=== PATIENT | female | born 1995 | race Two or more races ===

== ENCOUNTER 2022-02-22 08:48 | Outpatient (REF) | payer OTHER, SELFPAY ==
--- NOTE | ~2022-02-22 | XR_ITS ---
EXAMINATION: XR CHEST CLINICAL INFORMATION: Morbid/severe obesity due to excess calories COMPARISON: None TECHNIQUE: 2 views of the chest were obtained. FINDINGS: No significant abnormality is noted involving the heart, lungs, mediastinum, bony thorax or soft tissues. XR/XR chest 2V IMPRESSION: Unremarkable chest examination.
[2022-02-22 09:13] LABS: MANUAL DIFF FLAG NO
--- NOTE | 2022-02-22 09:13 | ECG_ITS ---
Test Reason : e66.01 Blood Pressure : / mmHG Vent. Rate : 078 BPM Atrial Rate : 078 BPM P-R Int : 150 ms QRS Dur : 082 ms QT Int : 392 ms P-R-T Axes : 012 021 019 degrees QTc Int : 446 ms Normal sinus rhythm Normal ECG No previous ECGs available Referred By: Chris Guadarrama Electronically Signed By:CATALINA MAGUIRE MD
[2022-02-22 09:37] LABS: Basophils Percent Auto 0.5 % (0-2); Eosinophils Absolute Auto 0.1 X10*3/uL (0.0-0.4); Hematocrit 40.8 % (37.0-47.0); Hemoglobin 13.1 g/dl (12.0-16.0); Imm Gran Abs Auto 0.02 X10*3/uL (0.00-0.03); Imm Gran Pct Auto 0.3 % (0.0-0.4); Lymphocytes Absolute Auto 3.2 X10*3/uL (1.2-4.9); Lymphocytes Percent Auto 39.5 % (20-40); Mean Corpuscular HGB Conc 32.1 g/dl (31.0-35.0); Mean Corpuscular Hemoglobin 26.6 pg (27.0-33.0); Mean Corpuscular Volume 82.8 fL (80.0-98.0); Mean Platelet Volume 9.9 fL (9.4-12.3); Monocytes Absolute Auto 0.5 X10*3/uL (0.1-1.2); Monocytes Percent Auto 6.4 % (2-11); Neutrophils Absolute Auto 4.2 x10*3/uL (2.0-8.3); Neutrophils Percent Auto 52.3 % (45-73); Platelet Count 414 X10*3/uL (160-400); Red Blood Count 4.93 X10*6/uL (4.20-5.50); Red Cell Distribution Width 15.1 % (11.0-16.0)
[2022-02-22 09:44] LABS: Estimated Average Glucose 111 mg/dL; Hemoglobin A1c % 5.5 %
[2022-02-22 10:00] LABS: Alanine Aminotransferase 17 U/L (0-31); Albumin Level 4.3 g/dL (3.5-5.0); Alkaline Phosphatase 86 U/L (39-117); Anion Gap 18 (12-20); Aspartate Amino Transferase 25 U/L (5-31); Bilirubin Total 0.4 mg/dL (0.0-1.0); Blood Urea Nitrogen 10 mg/dL (9-16); C Reactive Protein 1.54 mg/dL (< or = 0.50); Calcium 9.5 mg/dL (8.4-10.2); Carbon Dioxide 23 mmol/L (22-29); Chloride 102 mmol/L (96-108); Cholesterol 165 mg/dL; Estimated Glomerular Filt Rate > 60; Glucose Random 87 mg/dL (60-115); HDL Cholesterol 37 mg/dL; Iron 54 mcg/dL (30-160); LDL Cholesterol Calculated 118 mg/dl; Percent Iron Saturation 16 % (15-50); Potassium 4.5 mmol/L (3.3-5.1); Sodium 138 mmol/L (135-145); Total Iron Binding Capacity 337 mcg/dL (228-428); Total Protein 8.1 g/dL (6.5-8.0); Triglycerides 53 mg/dL; Unsaturated Iron Binding 283 ug/dL
[2022-02-22 10:46] LABS: Folate 13.1 ng/mL (> or = 4.0); Vitamin B12 1098 pg/mL (200-900)
[2022-02-22 10:55] LABS: Ferritin 65 ng/mL (10-122); Insulin 16 uU/mL (2-29); TSH reflex Free T4 1.26 uIU/mL (0.32-4.0)
[2022-02-25 17:27] LABS: Calcium (PTHI) 9.8 mg/dL (8.6-10.2); PTHI 74 pg/mL (16-77)
[2022-02-26 17:52] LABS: Zinc 80 mcg/dL (60-130)
[2022-02-28 15:26] LABS: Vitamin A 29 mcg/dL (38-98)
[2022-03-01 06:16] LABS: Vitamin B1 6 nmol/L (8-30)
== END 2022-02-22 08:49 | disposition home or self-care (01) ==
LOC: HO.XRAY 08:48
PROVIDERS: Visit Provider Surgery
DX: E66.01 Morbid (severe) obesity due to excess calories (principal); K21.9 Gastro-esophageal reflux disease without esophagitis; Z11.0 Encounter for screening for intestinal infectious diseases
CPT/HCPCS: 36415; 71046; 80053; 80061; 82306; 82607; 82728; 82746; 83036; 83525; 83540; 83970; 84425; 84443; 84590; 84630; 85025; 86140; 93005; 99211

== ENCOUNTER 2022-02-22 16:05 | Outpatient (REF) | payer OTHER, SELFPAY ==
[2022-02-23 11:11] LABS: H Pylori Breath Test Negative (Negative)
== END 2022-02-22 16:06 | disposition home or self-care (01) ==
LOC: HO.LNP 16:05
PROVIDERS: Visit Provider Surgery
DX: E66.01 Morbid (severe) obesity due to excess calories (principal); K21.9 Gastro-esophageal reflux disease without esophagitis; Z11.0 Encounter for screening for intestinal infectious diseases
CPT/HCPCS: 83013

== ENCOUNTER → 2022-03-14 10:58 | Outpatient (BNVA) | payer OTHER, SELFPAY | PROVIDERS: Visit Provider Dietitian, Registered | DX: E66.01 Morbid (severe) obesity due to excess calories (principal); Z68.41 Body mass index [BMI] 40.0-44.9, adult | CPT/HCPCS: 97802 ==

== ENCOUNTER → 2022-03-18 09:20 | Outpatient (BNVA) | payer OTHER, SELFPAY | PROVIDERS: Visit Provider Counselor Mental Health | DX: F43.21 Adjustment disorder with depressed mood (principal); E66.01 Morbid (severe) obesity due to excess calories | CPT/HCPCS: 90791 ==

== ENCOUNTER → 2022-04-05 08:08 | Outpatient (BNVA) | payer OTHER, SELFPAY | PROVIDERS: Visit Provider Surgery | DX: Z13.89 Encounter for screening for other disorder (principal) ==

== ENCOUNTER 2022-05-02 09:58 | Outpatient (REF) | payer OTHER, SELFPAY ==
--- NOTE | ~2022-05-02 | US_ITS ---
EXAMINATION: US COMPLETE ABDOMEN WITH LIVER ELASTOGRAPHY CLINICAL INFORMATION: Obesity. COMPARISON: None. TECHNIQUE: Real-time imaging of the abdominal viscera. Noninvasive ultrasound liver fibrosis assessment is performed using Darryn ElastPQ point quantification shear wave elastography (2D-SWE) with a C5-2 MHz transducer. Multiple elastography samples are obtained. FINDINGS: PANCREAS: Limited. The visualized pancreatic head and body are normal in appearance. The remainder of the pancreas is obscured from visualization by the overlying bowel gas. ABDOMINAL AORTA: The proximal, middle, and distal aortic segments are normal in caliber. INFERIOR VENA CAVA: Visualized portions are normal. LIVER: The liver demonstrates normal size, contour and generally increased echogenicity. No focal lesion or intrahepatic biliary duct dilatation. The right lobe measures 16.8 cm in length. The left lobe measures 12.0 cm in length. Portal flow is towards the liver (hepatopetal). Shear wave liver elastography median stiffness is 1.46 m/s (reference: normal median stiffness is 1.3 m/s or less). IQR/median stiffness to assess sampling precision is 0.10 (reference: good quality data set is IQR/median stiffness of 0.15 or less). GALLBLADDER: Normal. The gallbladder is physiologically distended without evidence of stones, sludge, polyps, wall thickening or pericholecystic fluid. COMMON BILE DUCT: Normal in caliber measuring 0.3 cm in diameter. RIGHT KIDNEY: Normal. There is mild pelviectasis, without ty hydronephrosis. No renal calculi or focal parenchymal lesions. The kidney measures 11.3 cm in maximum dimension. LEFT KIDNEY: Normal. There is mild pelviectasis, without ty hydronephrosis. No renal calculi or focal parenchymal lesions. The kidney measures 11.6 cm in maximum dimension. SPLEEN: Normal. The spleen measures 9.8 cm in maximum dimension. FREE FLUID: None. US/US abdomen comp w elastography IMPRESSION: 1. There is generalized increase in hepatic echotexture, consistent with fatty infiltration or hepatocellular disease. Please correlate clinically. No focal hepatic mass or intrahepatic biliary dilatation is seen. 2. Liver elastography: In the absence of other known clinical signs, measurements rule out compensated advanced chronic liver disease. If there are known clinical signs, further testing may be needed for confirmation. REFERENCE: Society of Radiologists in Ultrasound Liver Stiffness Thresholds (2020): LIVER STIFFNESS THRESHOLDS: *Liver Stiffness equal or less than 1.3 m/s: High probability of being normal. *Liver Stiffness less than 1.7 m/s: In the absence of other known clinical signs, rules out compensated advanced chronic liver disease. *Liver Stiffness 1.7-2.1 m/s: Suggestive of compensated advanced chronic liver disease but need further test for confirmation. *Liver Stiffness over 2.1 m/s: Rules in compensated advanced chronic liver disease. *Liver Stiffness over 2.4 m/s: Suggestive of clinically significant portal hypertension. QUALITY OF DATA SET: *IQR/Median value equal or less than 0.15 implies a quality data set. *IQR/Median value over 0.15 implies a poor quality data set. SIGNIFICANT CHANGE FROM PRIOR EXAM: Significant change if liver stiffness measurement is 10% or greater from prior exam. OTHER CONSIDERATIONS: The stage of liver fibrosis may be overestimated in the setting of acute hepatitis, liver inflammation, elevated liver function tests, hepatic vascular congestion, obstructive cholestasis, non-fasting state, and infiltrative diseases such as amyloidosis and lymphoma. In some patients with NAFLD, the liver stiffness thresholds for compensated advanced chronic liver disease may be lower. In causes other than viral hepatitis and NAFLD, liver stiffness thresholds are not well established.
== END 2022-05-02 09:59 | disposition home or self-care (01) ==
LOC: HO.US 09:58
PROVIDERS: Visit Provider Surgery
DX: Z01.818 Encounter for other preprocedural examination (principal); E66.01 Morbid (severe) obesity due to excess calories
CPT/HCPCS: 76705; 76981

== ENCOUNTER 2022-05-08 10:30 | Outpatient (REF) | payer OTHER, SELFPAY ==
--- NOTE | ~2022-05-08 | FL_ITS ---
EXAMINATION: FL UPPER GI SERIES CLINICAL INFORMATION: Bariatric service evaluation. E 66.01. Heartburn. COMPARISON: Chest radiographs 02/22/2022 TECHNIQUE: Upper GI series is performed using fluoroscopic evaluation in addition to multiple fluoroscopic spot views. The patient is imaged both upright and prone and using both thick and thin barium sulfate along with effervescent granules. Barium pill challenge also performed. Fluoroscopy time: 1.5 minutes DAP: 29.327 Gycm2 Fluoroscopic spot images: 20 FINDINGS: There is normal esophageal motility. There is no obstruction, stricture, or ulceration. Barium pill rapidly passes from mouth to stomach without delay. There is a brief small sliding hiatal hernia during prone Valsalva maneuver, approximately 1 thoracic vertebral body in height. There is spontaneous gastroesophageal reflux seen during the exam to junction mid and proximal thoracic esophagus. The stomach shows no thickened folds or ulcer crater or outlet obstruction. The duodenal bulb is pliable and without ulcer crater or scarring. The post bulbar duodenum the jejunal mucosal pattern are unremarkable. FL/FL upper GI w air IMPRESSION: -Small intermittent sliding hiatal hernia during prone Valsalva maneuver. -Spontaneous gastroesophageal reflux to junction proximal and mid thoracic esophagus. -No ulceration or scarring.
== END 2022-05-08 10:31 | disposition home or self-care (01) ==
LOC: HO.XRAY 10:30
PROVIDERS: Visit Provider Surgery
DX: E66.01 Morbid (severe) obesity due to excess calories (principal); K21.9 Gastro-esophageal reflux disease without esophagitis
CPT/HCPCS: 74246

== ENCOUNTER → 2022-05-20 09:07 | Outpatient (BNVA) | payer OTHER, SELFPAY | PROVIDERS: Visit Provider Surgery | DX: Z13.89 Encounter for screening for other disorder (principal) ==

== ENCOUNTER 2022-05-24 09:15 | Outpatient (REF) | payer OTHER, SELFPAY ==
[2022-05-24 11:21] LABS: MANUAL DIFF FLAG NO
[2022-05-24 12:52] LABS: Basophils Percent Auto 0.3 % (0-2); Eosinophils Absolute Auto 0.1 X10*3/uL (0.0-0.4); Eosinophils Percent Auto 0.6 % (0-4); Hematocrit 42.2 % (37.0-47.0); Hemoglobin 13.3 g/dl (12.0-16.0); Imm Gran Abs Auto 0.04 X10*3/uL (0.00-0.03); Imm Gran Pct Auto 0.4 % (0.0-0.4); Lymphocytes Absolute Auto 2.9 X10*3/uL (1.2-4.9); Lymphocytes Percent Auto 27.1 % (20-40); Mean Corpuscular HGB Conc 31.5 g/dl (31.0-35.0); Mean Corpuscular Hemoglobin 26.3 pg (27.0-33.0); Mean Corpuscular Volume 83.4 fL (80.0-98.0); Monocytes Absolute Auto 0.6 X10*3/uL (0.1-1.2); Monocytes Percent Auto 5.5 % (2-11); Neutrophils Absolute Auto 7.2 x10*3/uL (2.0-8.3); Neutrophils Percent Auto 66.1 % (45-73); Platelet Count 446 X10*3/uL (160-400); Red Blood Count 5.06 X10*6/uL (4.20-5.50); Red Cell Distribution Width 14.9 % (11.0-16.0); White Blood Count 10.8 X10*3/uL (4.8-10.8)
[2022-05-24 12:57] LABS: INTERNATIONAL NORM RATIO 1.1 (0.9-1.1); Prothrombin Time 13.2 SEC (10.0-13.1)
[2022-05-24 12:59] LABS: Partial Thromboplastin Time 36.5 SEC (26.0-36.4)
[2022-05-24 13:36] LABS: Alanine Aminotransferase 12 U/L (0-31); Albumin Level 4.1 g/dL (3.5-5.0); Alkaline Phosphatase 95 U/L (39-117); Anion Gap 14 (12-20); Aspartate Amino Transferase 18 U/L (5-31); Bilirubin Total 0.3 mg/dL (0.0-1.0); Blood Urea Nitrogen 9 mg/dL (9-16); C Reactive Protein 3.65 mg/dL (< or = 0.50); Calcium 9.4 mg/dL (8.4-10.2); Carbon Dioxide 24 mmol/L (22-29); Chloride 106 mmol/L (96-108); Cholesterol 171 mg/dL; Estimated Glomerular Filt Rate > 60; Glucose Random 86 mg/dL (60-115); HDL Cholesterol 47 mg/dL; LDL Cholesterol Calculated 114 mg/dl; Potassium 4.9 mmol/L (3.3-5.1); Sodium 139 mmol/L (135-145); Total Protein 7.7 g/dL (6.5-8.0); Triglycerides 54 mg/dL
[2022-05-24 13:56] LABS: Insulin 16 uU/mL (2-29)
[2022-05-24 14:12] LABS: Estimated Average Glucose 103 mg/dL; Hemoglobin A1c % 5.2 %
== END 2022-05-24 09:16 | disposition home or self-care (01) ==
LOC: HO.LAB 09:15
PROVIDERS: Visit Provider Surgery
DX: E66.01 Morbid (severe) obesity due to excess calories (principal)
CPT/HCPCS: 36415; 80053; 80061; 83036; 83525; 84443; 85025; 85610; 85730; 86140

== ENCOUNTER 2022-06-04 13:24 | Inpatient (IN) | payer OTHER, SELFPAY ==
[2022-05-27 11:15] VITALS: BMI 42.0
--- NOTE | 2022-06-01 15:54 | MHC.SHP ---
Pre-Procedural Eval Section A Date of Service: 06/01/22 The patient is an INPATIENT: No The History & Physical has been completed within 30 days and I have reviewed it.: Yes Section B Chief Complaint: obesity Relevant Family History (Specify if Yes): No Relevant Social History: None Present Medications: None Medical History: No relevant PMH History of Previous Operations: No relevant previous surgery Allergies: Allergies Allergy/AdvReac Type Severity Reaction Status Date / Time Penicillins Allergy Severe HIVES Verified 05/27/22 11:12 Review of Systems Sugical H&P ROS: Negative: Constitution, Cardiovascular, Respiratory, Neurological, Psychiatric, Hem-Onc, Allergic/Immunologic, Gastrointestinal, Genitourinary, Musculoskeletal, Integumentary, Endocrine and Eyes/Ears/Nose/Throat Exam Surgical H&P Exam: Normal: HEENT, Normal: Heart, Normal: Lungs, Normal: Extremities, Normal: Abdomen, Normal: Skin and Normal: Neurological Plan Diagnosis/Plan: Unchanged I have reviewed the history and physical and performed a pertinent physical examination on my patient. No changes have occurred unless specified. Time Spent With Patient Time: Total time managing care of this patient today ____ minutes.
[2022-06-04] VITALS (14 sets, daily range): BP systolic 114–145; BP diastolic 56–99; PULSE 63–114; RESP 11–20; TEMP 36–36.9; O2SAT 95–100
--- NOTE | 2022-06-04 07:32 | HO.ANESPROP2 ---
HPI - Anesthesia Eval Consult details Narrative: 27 yo female patient for EGD, Laparoscopic Sleeve Gastrectomy, possible diaphragmatic hernia repair, possible ventral hernia repair, possible open PMFSH Active Problems Active Problems: All Active Problems (Updated 03/18/22 @ 09:56 by Karla Rowe) Vitamin D deficiency (Acute) Vitamin B1 deficiency (Acute) Vitamin A deficiency (Acute) Adjustment disorder with depressed mood (Acute) Axillary hidradenitis suppurativa (Acute) GERD (gastroesophageal reflux disease) (Acute) Morbid obesity (Acute) BMI 42 Denies snoring, KILLIAN Past Medical History Medical History Axillary hidradenitis suppurativa GERD (gastroesophageal reflux disease) Morbid obesity Family History Family History Mother No problems noted. Father Diabetes Hypertension Sister No problems noted. Sister No problems noted. Sister No problems noted. Brother No problems noted. Brother No problems noted. Brother No problems noted. Son No problems noted. 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) Do you presently have visiting nurse or other home services: No Alcohol intake: current Alcohol intake frequency: does not drink Patient Tobacco Use Status: Never used Tobacco Use of substances other than those prescribed or required for medical reasons: No Meds Allergies Allergy/AdvReac Type Severity Reaction Status Date / Time Penicillins Allergy Severe HIVES Verified 06/04/22 09:16 Home Medications Medication Instructions Recorded Confirmed Last Taken Type multivitamin 1 tab PO DAILY 02/07/22 05/20/22 Unknown History vits,calcium no.78-iron 1 tab PO DAILY 05/08/22 05/20/22 Unknown History fumarate-folic acid 29 mg-1 mg tablet (Prenatabs FA) Exam Exam Date and Time: June 04, 2022 0732 Height,Weight and Vital Signs: Height 5 ft Weight 97.522 kg Vital Signs Temp Pulse Resp BP Pulse Ox O2 Del Method 06/04/22 09:26 98.4 F 92 16 129/75 98 Room Air Pertinent Lab Results Pertinent Lab Results: Laboratory Tests 05/24/22 11:10 Blood Type O Positive Antibody Screen NEGATIVE Lab Results 05/24/22 06/04/22 06/04/22 Range/Units 11:10 09:05 09:05 Urine Test NEGATIVE (NEGATIVE) COVID-19 ([facility]) Negative (Negative) COVID-19 Clin Com See Note Blood Type O Positive Antibody Screen NEGATIVE Airway Mallampati Class: II TM Dist: >3cm Neck ROM: Full Loose/Missing/Broken Teeth: No (Denies broken, loose, missing teeth) Heart: RRR Lungs: CTAB Assessment and Plan Assessment Anesthesia Assessment: Anesthesia Plan Discussed and Chart Reviewed Final Anesthetic Review Family History of Problems with Anesthesia: No History of Problems with Anesthesia: No NPO: Yes ASA Class: III Final Preanesthetic Review: No Changes in Pt Med Stat, Meds/Allgs Chart Reviewed, Consent Obtained/Reviewed and Anes Risks/Benef Reviewed Patient Risk: Intermediate Procedure Risk: Intermediate Assessment/Block/Sedation in SS: Assess/Block/Sedation-SS Anesthetic Plan Anesthetic Plan: GA Disposition: Standard PACU and Inp. Admit - Standard Bed
[2022-06-04 09:20] LABS: UPreg QC Valid YES; Urine Pregnancy NEGATIVE (NEGATIVE)
[2022-06-04 09:41] LABS: COVID-19 Test Negative (Negative); IDNOW Serial# 55D5AD1C
[2022-06-04] MEDS: Lactated Ringers 1,000 ML 999 ML IV (09:44)
--- NOTE | 2022-06-04 10:56 | P.BOP_ITS ---
Brief Operative Note Date of Service: 06/04/22 Pre-op diagnosis: Morbid obesity with comorbidities (see below) Post-op diagnosis: same Procedure: INITIAL PATIENT BMI ON PRESENTATION AT OUR OFFICE: 45.6 kg/m2 LAST BMI BEFORE SURGERY: 40.2 kg/m2 COMORBIDITIES: GERD, hydradenitis, diaphragmatic hernia, liver fibrosis,liver steatosis ?The patient presented to the Weight Management Program with significant obesity that was negatively impacting the patient's comorbidities as listed above.? The program is a phased program with a special focus on preoperative medical weight management to promote substantial weight loss and prepare the patients for the second phase of the program: bariatric surgery. The patient participated in an intensive weekly lifestyle ?intervention and exercise program during which the patient ?has lost between the initial office visit and the last preoperative visit 28.4lbs, or 11.78% of initial actual body weight. It was deemed appropriate for the patient to now have bariatric surgery. In light of the current Covid-19 pandemic and the well documented strong association of obesity and increased risk of worse outcomes if infected with Covid-19 (REFERENCES: https://pubmed.ncbi.nlm.nih.gov/28191553/ ,? https://pubmed.ncbi.nlm.nih.gov/99814743/ ), any delay in undergoing bariatric surgery may lead to the patient's worsening health condition and increased?risk of more severe Covid-19 disease if infected. In addition a recent?study from [facility] published in [facility] on 04/09/2021 ([id number]) found that, among patients with obesity, substantial weight loss achieved with surgery was associated with improved outcomes of COVID-19 infection. The findings suggest that obesity can be a modifiable risk factor for the severity of COVID-19 infection. In addition, the patient met the BMI-criteria for bariatric surgery based on the BMI on initial presentation. The patient should not be penalized for achieving such weight loss because ?it is not sustainable long-term without surgical intervention and it was achieved in preparation for bariatric surgery ?under my direction and based on my published research ([email or web address]).[email or web address] and? https://www.soard.org/article/W2312-8849(75)49912-X/pdf ) ?that a 10% preo perative weight loss improves long-term weight loss after surgery and reduces perioperative complications.? Insurance carriers such as [facility] have endorsed my recommendations ?and have included in their policies criteria to include a 10% preoperative weight loss requirement. PROCEDURE: Esophago-gastroscopy, laparoscopic sleeve gastrectomy and laparoscopic gastropexy INDICATIONS: This is a 27 year-old female who was electively scheduled for laparoscopic, possibly open sleeve gastrectomy. The risks and complications of the procedure were discussed with the patient in advance, particularly the po ssibility of ; pulmonary embolism; staple line leak; bleeding; GERD; cardiac, pulmonary, or renal complications; as well as long-term problems such as insufficient weight loss, vitamin deficiency, strictures, or ulcers. The patient understood all the risks, and was in agreement to proceed with surgery. DESCRIPTION OF PROCEDURE: After informed consent was obtained from the patient, the patient was given preoperative antibiotics, and was transferred to the operating room. After successful induction of general anesthesia, pneumatic compression devices were placed on both lower extremities. An upper endoscopy was performed next. The oropharynx and esophagus appeared to be within normal limits. There was a diaphragmatic hernia present of moderate size consistent with the findings of the preoperative upper GI. The stomach was entered. Then after all fluid and air were suctioned and the stomach was fully decompressed, the scope was withdrawn and secured in the mid esophagus. The patient was then prepped and draped in the usual sterile manner, and abdominal access was established at the right upper quadrant with the Thu technique. A 12 mm blunt port was inserted, and the abdomen was insufflated with CO2 to a pressure of 15 mmHg. Under direct visualization, additional ports were placed, specifically two 5 mm Versi-step ports to the left upper quadrant, and a 5 mm Versi-Step port to the right upper quadrant. 1% lidocaine plain was used to infiltrate all port sites as well as all fascia defects. Using the EndoClose suture passer device, I placed a #1 Polysorb tie across the falciform ligament in order to retract it up against the abdominal wall and prevent injury of the ligament with our instruments during the procedure. Following that, the patient was placed in a steep reverse Trendelenburg position. An additional 5 mm port was placed to the right flank for the Mediflex retractor that was used to retract the left lobe of the liver. The gastro-esophageal fat pad was opened with the ultrasonic device (Thunderbeat, Olympus) and the anterior esophagus and hiatus were exposed. The angle of His was opened with the ultrasonic device the fundus of the stomach from any diaphragmatic and splenic attachments. I then opened the gastrocolic ligament between the transverse colon and the greater curvature of the stomach with the ultrasonic device to enter the lesser sac and facilitate the ligation of the short gastric vessels. I started at a mid-point along the greater curvature and using the Thunderbeat, all short gastric vessels were divided all the way to the angle of His until the left wilmer was completely dissected at its entirety. I then divided the gastro-colic ligament distally to a distance of about 3-4 cm proximal to the pylorus. The stomach was then divided transversely with one Endo MATTHEW-45 purple, one MATTHEW- 45 orange load and three MATTHEW-6s0 articulating orange loads using the AEON stapler and loads. Every effort was made that the gastric sleeve had a tubular shape and an even caliber throughout. Once the sleeve resection was completed, the staple line of the gastric sleeve was reinforced with Hemoclips. The resected stomach was retrieved without difficulty from the Thu port. A gastropexy was then performed in order to prevent postoperative GERD and partial gastric volvulus. Several interrupted 2.0 Surgidac sutures were placed between the sleeve's staple line and the previously divided greater omentum and gastro-colic ligament using the Endo-Stitch device. ?An upper endoscopy was performed. There was no narrowing at the GE junction. The scope was easily advanced all the way to the pylorus which was clearly visualized. There was no narrowing anywhere and the sleeve's caliber was even throughout. The sleeve's staple line was inspected and there was no evidence of ischemia, bleeding or dehiscence. At that point the gastroscope was withdrawn from the patient?s mouth while we were decompressing the bowel and the stomach from any remaining air. I looked into the lesser sac to see how the sleeve was situating and it was situating well. There was no bleeding from the staple line, spleen, or short gastric vessels. The Mediflex retractor was removed, and the undersurface of the liver was inspected and there was no bleeding. The patient was placed in supine position. I closed the fascial defect of the 12 mm port site with a figure of eight #1 Polysorb suture. Then 30cc of Ropivacaine plain with 10 mg of Dexamethasone were used to infiltrate the fascial closure as well as all skin incisions. A total of 7ml of Zynrelef was applied in the Thu wound. At this point, the abdomen was deflated, all ports were removed under direct vision, and no bleeding was noted from any of the port sites. The skin incisions were irrigated with saline and were closed with 4-0 absorbable monofilament sutures. Steri-Strips and OpSites were used to cover all incisions. The patient was extubated and was transferred in stable condition to the recovery room for further care. I was present and performed all craft parts of the procedure. Ms. Davis was the first dyer. There were no residents to assist with this case. James Guadarrama MD, PhD, FACS Surgeon: Chris Guadarrama MD Anesthesia: GETA, local and other (TAP block and 7ml of Zynrelef) Was an Finishing Range Feeder used for this Procedure?: No Finishing Range Feeder: Tina Davis Estimated blood loss (mL): 10 IV fluids (mL): 2,600 Urine output (mL): 0 (No Walton to record output) Pathology: other (Stomach) Condition: stable Disposition: PACU
--- NOTE | 2022-06-04 11:01 | PM.PNGS ---
Subjective Subjective Date of Service: 06/05/22 Interval history: Patient has mild incisional pain, but was able to ambulate and use the incentive spirometer. She is tolerating phase 1 bariatric diet Physical Exam Vital Signs: Vital Signs: Last Vital Signs Temp 98.4 F 06/04/22 09:26 Pulse 92 06/04/22 09:26 Resp 16 06/04/22 09:26 BP 129/75 06/04/22 09:26 Pulse Ox 98 06/04/22 09:26 O2 Del Method 06/04/22 09:26 BMI result Body Mass Index 42.0 GI: Inspection: Yes normal to inspection, Yes incision (clean, dry and intact) and Yes obesity Palpation (GI): Soft to palpation Extrem: Right lower extremity: normal to inspection (no calf tenderness) Left lower extremity: normal to inspection (no calf tenderness) Objective Data Active Medications Fentanyl (Fentanyl Citrate/Pf 100 Mcg/2 Ml Vial) 25 mcg IVPUSH Q5M PRN; Protocol PRN Reason: Pain, Moderate (Pain Scale 4-6 Hydromorphone HCl (Hydromorphone Hcl 0.5 Mg/0.5 Ml Syringe) 0.25 mg IVPUSH Q5M PRN; Protocol PRN Reason: Pain, Severe (Pain Scale 7-10) Lactated Ringer's (Lr) 1,000 mls @ 100 mls/hr IVCONT .Q10H JUAN RAMON Promethazine HCl 6.25 mg/ (Sodium Chloride) 50.25 mls @ 201 mls/hr IV ONCE PRN PRN Reason: Nausea and Vomiting Ondansetron HCl (Ondansetron Hcl 4 Mg/2 Ml Vial) 4 mg IVPUSH ONCE PRN PRN Reason: Nausea and Vomiting Labs 06/04/22 13:44 06/04/22 13:44 Labs: Laboratory Results - last 24 hr 06/04/22 06/04/22 09:05 09:05 Urine Test NEGATIVE COVID-19 ([facility]) Negative COVID-19 Clin Com See Note Procedures Date of Service Date of Service: 06/05/22 Progress Note: A&P Assessment and plan (1) Morbid obesity: Status: Acute Assessment and Plan: s/p laparoscopic sleeve gastrectomy and gastropexy Doing well Check am labs. If OK, will discharge home? (2) GERD (gastroesophageal reflux disease): Status: Acute (3) Axillary hidradenitis suppurativa: Status: Acute (4) Diaphragmatic hernia: Status: Acute (5) Steatosis, liver: Status: Acute (6) Liver fibrosis: Status: Acute (7) S/P laparoscopic sleeve gastrectomy: Status: Acute Time Spent With Patient Time: Total time managing care of this patient today ____ minutes. Quality Stroke Does the patient have a stroke diagnosis?: No VTE Prior VTE?: No VTE Risk Level:: Surgical - moderate VTE Device Contraindication: N/A - Device Ordered VTE Drug Contraindication: Treatment Not Indicated
[2022-06-04] MEDS: Lactated Ringers 1,000 ML 100 ML IVCONT ×3 (11:04→21:31)
[2022-06-04] MEDS: levoFLOXacin/D5W 500 MG/100 ML PIGGYBACK 100 MG IV (11:13)
[2022-06-04] MEDS: Acetaminophen 1,000 MG/100 ML PIGGYBACK 400 MG IV (12:50)
--- NOTE | 2022-06-04 13:29 | PM.DS ---
DS: Providers Provider Date of Service: 06/05/22 Primary care physician: Unknown Physician DS: Diagnosis Discharge Diagnosis (1) Morbid obesity: Status: Acute (2) GERD (gastroesophageal reflux disease): Status: Acute (3) Axillary hidradenitis suppurativa: Status: Acute (4) Diaphragmatic hernia: Status: Acute (5) Steatosis, liver: Status: Acute (6) Liver fibrosis: Status: Acute DS: Summary Hospital Course Hospital Course: ADMITTING DIAGNOSIS: morbid obesity, GERD, hydradeniits suppurtiva DISCHARGE DIAGNOSIS: same, s/p laparoscopic sleeve gastrectomy PAST SURGICAL HISTORY: breast reduction PROCEDURE: upper endoscopy, laparoscopic sleeve gastrectomy DISCHARGE SUMMARY: History of Present Illness: The patient is a 27 year-old woman with a BMI of 45.5 kg/m2 and associated co-morbidities as described above. The patient had extensive work-up, lost 22.2 lbs preoperatively and was electively scheduled for laparoscopic, possible open sleeve gastrectomy and gastropexy. Risks and complications of the surgery were discussed with the patient in advance, particularly the possibility of , pulmonary embolism, anastomotic leak, bleeding, bowel injury, GERD, cardiac, renal or pulmonary complications. The patient understood all the risks and was in agreement with the surgical plan. Hospital Course: The patient underwent an uneventful laparoscopic sleeve gastrectomy with gastropexy on the day of admission. Postoperatively, the patient was transferred to the surgical floor. The patient received IV Acetaminophen and IV dilaudid for pain control. Patient was started on bariatric phase 1 diet POD #0. On postoperative day one, the patient was feeling well without nausea, vomiting, fevers, or tachycardia. The patient had some mild incisional pain and the abdomen was soft. On the morning of postoperative day one, the patient was continued on 1 ounce of water or ice every half hour. During the day, the patient did fairly well, having some incisional pain, but able to ambulate adequately and to tolerate liquids well. Since the patient is doing well, we decided that the patient was ready to be discharged. The patient was given instructions to follow-up with me next week and to call my office for any fever over 101, persistent abdominal pain, nausea, vomiting, GERD, symptoms of DVT such as calf tenderness, or leg swelling, or pulmonary embolism such as chest pain or shortness of breath. The patient was also instructed to drink 40-60 ounces of liquids per day using the 1-ounce cups. The patient had been given prescriptions for Tylenol for pain, Zofran prn for nausea, and pantoprazole and carafate previously. The patient was encouraged to ambulate and use the incentive spirometer. The patient was allowed to shower, but no baths, and encouraged to stay active at home. All of these instructions were given to the patient personally. All questions were answered and the patient understood all instructions, the instructions were also given to the patient in print. Time Spent with Patient Time attestation: Total time managing care of this patient today ____ minutes. Discharge coordination time: Less than 30 minutes Quality: Safe Use of Opioids Does Pt have an Active Cancer Diagnosis on the Problem List?: No Quality: Stroke Does the patient have a stroke diagnosis?: No Physical Exam Vital Signs: Vital Signs: Last Vital Signs Temp 98.4 F 06/04/22 09:26 Pulse 92 06/04/22 09:26 Resp 16 06/04/22 09:26 BP 129/75 06/04/22 09:26 Pulse Ox 98 06/04/22 09:26 O2 Del Method 06/04/22 09:26 BMI result Body Mass Index 42.0 DS: Data Data Completed and Pending Pending studies at discharge: Pending at discharge 06/04/22 12:36 Surgical [PTH] Routine Labs on day of discharge: Laboratory Results - last 24 hr 06/04/22 06/04/22 09:05 09:05 Urine Test NEGATIVE COVID-19 ([facility]) Negative COVID-19 Clin Com See Note Discharge Plan Discharge Anticipated Discharge Date/Time: 06/05/22 10:03 Patient Disposition: Home, Self-Care Discharge Diagnosis: s/p sleeve gastrectomy Referrals: Physician,Unknown J [Physician] - 1 Week Discharge Medications: Continued pantoprazole 40 mg tablet,delayed release (DR/EC) 40 mg PO DAILY Qty: 30 2RF sucralfate 100 mg/mL suspension 10 ml PO BID Qty: 400 2RF ondansetron HCl 4 mg tablet 4 mg PO Q12H Qty: 20 0RF Rx Instructions: ONLY use if you have nausea as needed Discontinued cholecalciferol (vitamin D3) 125 mcg (5,000 unit) capsule 125 mcg PO DAILY Qty: 30 2RF thiamine HCl (vitamin B1) 100 mg tablet 100 mg PO DAILY Qty: 30 2RF vitamin A palmitate 10,000 unit capsule 10,000 unit PO .COMPLEX Qty: 30 2RF Rx Instructions: 10,000 units orally one per day; Prenatabs FA 29-1 mg tablet 1 tab PO DAILY multivitamin Tablet 1 tab PO DAILY Discharge Orders: Discharge Order (Routine); Ordered 06/05/22 Ordered By: Chris Guadarrama Activity on Discharge: No heavy lifting Care Plan Goals: weight loss Health Concerns: morbid obesity Plan of Treatment: No tub baths, sex or returning to work until discussed at first post op appointment. No exercise, alcohol, tobacco or illegal drug use. Continue to use incentive spirometer hourly while awake. Walk in home for 5- 10 minutes every 2 hours during the first week. Continue phase 1 diet today and start phase 2 diet tomorrow morning. Follow all instructions in the bariatric handbook and call with any questions. 1. Please call your doctor or come back to the emergency room should any new symptoms arise. 2. You will receive a courtesy call from [facility] 24-48 hours after discharge. 3. Activity: abstain from alcohol, practice limited stair climbing, no bending, no driving, no exercise, no illicit substances, no lifting, no sex, no tub bath, no work. 4. Diet: continue as discussed with bariatric team.. 5. Dressing Change/Wound Care: Do not change or remove surgical dressings unless they are wet or soiled. 6. Call your doctor if: - Your temperature exceeds 101.5 F - You experience excessive pain or swelling - You have an unexpected reaction to medication - You have excessive bleeding - You experience continued vomiting/nausea - Your incision begins to separate - Your incision shows signs of infection such as increased redness, swelling, excessive pain, heat, or drainage (light blood or clear fluid is normal) 7. General instructions: No lifting greater than 5 lbs for the next 4 weeks[address] within 24 hours of taking narcotic pain medications. If you do not move your bowels in the next 2 days, please take milk of magnesia over the counter. Please follow the post op diet and do not advance your diet until you are seen in the office in about 2 weeks. Please walk around your home every hour or two to prevent blood clots from forming in your legs. You do not need to wake from sleeping to walk. Please sleep in a bed or couch to prevent kinking at the hips and knees. Please take your incentive spirometer (your lung unified communications engineer) home with you and use it for the next few days to prevent pneumonias. You may shower, no hot tubs, baths or swimming pools. Please call the office with any questions or concerns such as increasing abdominal pain, fever, chills, shortness of breath, chest pain, leg pain or swelling, or redness or drainage from your incisions. Do not hesitate to contact the office with any questions at . The patient's medical history has been reviewed and they are considered low risk for post op DVT and therefore DVT prophylaxis is not considered necessary. Travel after surgery was reviewed. The patient has not disclosed any travel plans during the first 30 days after surgery and they have been advised that within the first 30 days after surgery any bus, plane, train or car travel over 2 hours in duration is contraindicated due to the possibility of developing blood clots from immobility. Any travel, needs to include periods of ambulation of 10 minutes in duration every 2 hours. The patient was instructed to discuss any plans for travel during this period with their bariatric surgeon. Assessment: stable post op sleeve gastrectomy Discharge Date/Time: 06/05/22 10:20
[2022-06-04 13:49] LABS: Hematocrit 37.3 % (37.0-47.0); Hemoglobin 11.9 g/dl (12.0-16.0)
[2022-06-04] MEDS: Famotidine/PF 20 MG/2 ML VIAL IVPUSH ×2 (13:52→21:31)
[2022-06-04 14:08] LABS: Anion Gap 15 (12-20); Blood Urea Nitrogen 4 mg/dL (9-16); Calcium 8.4 mg/dL (8.4-10.2); Carbon Dioxide 20 mmol/L (22-29); Chloride 105 mmol/L (96-108); Estimated Glomerular Filt Rate > 60; Glucose Random 72 mg/dL (60-115); Potassium 3.9 mmol/L (3.3-5.1); Sodium 136 mmol/L (135-145)
[2022-06-04] MEDS: Acetaminophen 1,000 MG/100 ML PIGGYBACK 16.7 MG IV ×2 (17:22→21:39)
[2022-06-04] MEDS: 0.9 % Sodium Chloride Flush 3 ML SYRINGE IVFLUSH (21:31)
[2022-06-05] MEDS: Lactated Ringers 1,000 ML 100 ML IVCONT ×2 (00:13→06:22)
[2022-06-05] MEDS: ondansetron HCL 4 MG/2 ML VIAL IVPUSH ×2 (00:14→07:11)
[2022-06-05] MEDS: Acetaminophen 1,000 MG/100 ML PIGGYBACK 16.7 MG IV (03:11)
[2022-06-05 03:36] VITALS: BP 130/60; PULSE 71; RESP 18; TEMP 36.7; O2SAT 97
[2022-06-05 06:18] LABS: MANUAL DIFF FLAG NO
[2022-06-05 06:52] LABS: Basophils Percent Auto 0.1 % (0-2); Imm Gran Abs Auto 0.04 X10*3/uL (0.00-0.03); Imm Gran Pct Auto 0.4 % (0.0-0.4); Lymphocytes Absolute Auto 1.7 X10*3/uL (1.2-4.9); Lymphocytes Percent Auto 17.6 % (20-40); Mean Corpuscular HGB Conc 31.7 g/dl (31.0-35.0); Mean Corpuscular Hemoglobin 26.6 pg (27.0-33.0); Mean Platelet Volume 10.2 fL (9.4-12.3); Monocytes Absolute Auto 0.4 X10*3/uL (0.1-1.2); Monocytes Percent Auto 3.9 % (2-11); Neutrophils Absolute Auto 7.5 x10*3/uL (2.0-8.3); Platelet Count 432 X10*3/uL (160-400); Red Blood Count 4.88 X10*6/uL (4.20-5.50); Red Cell Distribution Width 14.1 % (11.0-16.0); White Blood Count 9.7 X10*3/uL (4.8-10.8)
[2022-06-05 07:10] VITALS: BP 110/75; PULSE 59; RESP 18; TEMP 36.4; O2SAT 97
[2022-06-05] MEDS: Famotidine/PF 20 MG/2 ML VIAL IVPUSH (07:11)
[2022-06-05 07:36] LABS: Anion Gap 19 (12-20); Blood Urea Nitrogen 4 mg/dL (9-16); Carbon Dioxide 16 mmol/L (22-29); Chloride 105 mmol/L (96-108); Creatinine Clr Calc Pharmacy 132.3; Estimated Glomerular Filt Rate > 60; Glucose Random 89 mg/dL (60-115); Sodium 135 mmol/L (135-145)
--- NOTE | 2022-06-05 09:53 | MHC.CM.PN ---
-EMR REVIEWED, PT ADMITTED S/P LAP SLEEVE GASTRECTOMY, CM MET W/PT WHO REPORTS SHE LIVES W/HER 5YO SON, INDEPENDENT W/ALL CARE, DENIES USE OF DME AND HOME SERVICES, PT DENIES RECEIVING COVID VACCINE, PCP IS AT [facility] AND PT EDUCATED ON AND DECLINES TO COMPLETE A HCP PRIOR TO D/C. PT DISCHARGED TODAY HOME SELF CARE W/FOLLOW-UP NEXT WEEK, FAMILY FOR TRANSPORT
--- NOTE | 2022-06-05 19:24 | HO.POSTANES ---
Post Anesthesia Evaluation Post Anesthesia Evaluation Anesthesia: General Endotracheal-GETA Mental Status: Awake Pain Control: Satisfactory Nausea/Vomiting: None Anesthesia-Related Issues: No Anes. Related Issues Comments: Called the patient home , no, complains.
== END 2022-06-05 10:20 | disposition home or self-care (01) | DRG 403 ==
LOC: HO.SSS 13:28 → HO.S3 15:31
PROVIDERS: Anesthesiology; Surgery; Admitting Provider Physician Assistant; PCP Student in an Organized Health Care Education/Training Program; Visit Provider Physician Assistant
PROC: 0DB64Z3 Excision of Stomach, Percutaneous Endoscopic Approach, Vertical (ICD-10-PCS; CPT 43845; principal; 2022-06-04 13:40)
DX: E66.01 Morbid (severe) obesity due to excess calories (principal); K74.00 Hepatic fibrosis, unspecified; K21.9 Gastro-esophageal reflux disease without esophagitis; L73.2 Hidradenitis suppurativa; K76.0 Fatty (change of) liver, not elsewhere classified; K44.9 Diaphragmatic hernia without obstruction or gangrene; Z20.822 Contact with and (suspected) exposure to COVID-19; Z68.41 Body mass index [BMI] 40.0-44.9, adult; Z88.0 Allergy status to penicillin; Z79.899 Other long term (current) drug therapy
CPT/HCPCS: 36415; 80048; 81025; 85014; 85018; 85025; 86850; 86900; 86901; 87635; 88307; 88342; A4649; C9088; J0131; J1100; J1170; J1956; J2250; J2405; J2795; J3010

== ENCOUNTER → 2022-06-11 11:11 | Outpatient (BNVA) | payer OTHER, SELFPAY | PROVIDERS: PCP Student in an Organized Health Care Education/Training Program; Visit Provider Physician Assistant Surgical | DX: E66.01 Morbid (severe) obesity due to excess calories (principal); K21.9 Gastro-esophageal reflux disease without esophagitis; K59.00 Constipation, unspecified; Z68.38 Body mass index [BMI] 38.0-38.9, adult; Z90.3 Acquired absence of stomach [part of] | CPT/HCPCS: 99212 ==

== ENCOUNTER → 2022-06-26 09:56 | Outpatient (BNVA) | payer OTHER, SELFPAY | PROVIDERS: PCP Student in an Organized Health Care Education/Training Program; Visit Provider Physician Assistant Surgical | DX: T81.31XA Disruption of external operation (surgical) wound, not elsewhere classified, initial encounter (principal); K59.00 Constipation, unspecified; Z98.84 Bariatric surgery status | CPT/HCPCS: 99212 ==

== ENCOUNTER → 2022-07-01 11:52 | Outpatient (BNVA) | payer OTHER, SELFPAY | PROVIDERS: PCP Student in an Organized Health Care Education/Training Program; Referring Provider Student in an Organized Health Care Education/Training Program; Visit Provider Physician Assistant Surgical | DX: T81.31XD Disruption of external operation (surgical) wound, not elsewhere classified, subsequent encounter (principal) | CPT/HCPCS: 99212 ==

== ENCOUNTER → 2022-07-09 09:04 | Outpatient (BNVA) | payer OTHER, SELFPAY | PROVIDERS: PCP Student in an Organized Health Care Education/Training Program; Visit Provider Physician Assistant Surgical | DX: Z98.84 Bariatric surgery status (principal) | CPT/HCPCS: 99212 ==

== ENCOUNTER → 2022-07-31 11:33 | Outpatient (BNVA) | payer OTHER, SELFPAY | PROVIDERS: PCP Student in an Organized Health Care Education/Training Program; Visit Provider Physician Assistant Surgical | DX: Z98.84 Bariatric surgery status (principal) | CPT/HCPCS: 99212 ==

== ENCOUNTER → 2022-09-06 10:16 | Outpatient (BNVA) | payer OTHER, SELFPAY | PROVIDERS: PCP Student in an Organized Health Care Education/Training Program; Visit Provider Physician Assistant Surgical ==

== ENCOUNTER → 2022-10-16 08:45 | Outpatient (BNVA) | payer SELFPAY | PROVIDERS: PCP Student in an Organized Health Care Education/Training Program; Visit Provider Physician Assistant Surgical | DX: E66.9 Obesity, unspecified (principal); Z68.32 Body mass index [BMI] 32.0-32.9, adult | CPT/HCPCS: 99212 ==

== ENCOUNTER 2024-06-09 09:52 | Outpatient (AMB) | payer OTHER, MEDICAID, SELFPAY ==
[2024-06-09 09:53] VITALS: BP 108/69; PULSE 77; BMI 37.3
--- NOTE | 2024-06-09 09:53 | A.OFFVIS_ITS ---
Vital Signs 06/09/24 09:53 Height 5 ft Weight 191 lb BMI 37.3 BP 108/69 Blood Pressure Location Lt brachial Position Sitting Pulse 77 Intake Visit Reasons: (OV) PO LSG 06/04/22 Intake Note: Follow-up c/o bowel issue, weight gain,and heart burn [employer] Required: No Allergies Penicillins Allergy (Severe, Verified 07/31/22 11:40) HIVES Medication List - Last Reconciled 06/09/24 by LISA Silva sennosides (senna) 17.2 mg (2 x 8.6 mg) PO BEDTIME PRN HPI Comments Details: This?a?29?yo female who is s/p LSG without hiatal hernia repair on?06/04/[address] Guadarrama. Presents for 2 year post op visit. Weight today is 187.2 pounds, with a BMI of 36.5.? There has been a 58.8 pound weight loss,(initial weight 241 pounds) since starting the program on 02/11/22 reflecting a 24.3% total body weight loss and a weight loss of 32.3 pounds since surgery (operative weight 214.5 pounds) reflecting a 15% TBWL since surgery.? No complaints of nausea, emesis, abdominal pain or reflux. Reports infrequent but normal bowel movements every 2-3 days and uses stool softeners regularly.? She states that she had not been seen in the office because she had lost insurance. 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 She has not been following a specific meal plan or exercise plan. She has additionally been having difficulty with constipation and reflux. She states she is doing very well.? She feels amazing per her report. Wants to continue current meal plan previous meal plan includes: Celebrate 4:1 2 scoops 8-10, 12-2 meal 4 f/4 f at 5 pm 32-48 oz water additional ? Exercise routine includes: none PFSH Medical History Axillary hidradenitis suppurativa GERD (gastroesophageal reflux disease) Morbid obesity Surgical History Hx of breast reduction, elective Family History Mother No problems noted. Father Diabetes Hypertension Sister No problems noted. Sister No problems noted. Sister No problems noted. Brother No problems noted. Brother No problems noted. Brother No problems noted. Son No problems noted. 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 other at home: Yes (5 year old son) Do you presently have visiting nurse or other home services: No Alcohol intake: current Alcohol intake frequency: does not drink Patient Tobacco Use Status: Never used Tobacco service: No Current occupational status: employed Physical Exam Vital Signs: Last Vital Signs Pulse 77 06/09/24 09:53 BP 108/69 06/09/24 09:53 BMI result Body Mass Index 36.5 Const General: healthy appearing and no acute distress Resp Effort & Inspection: normal respiratory effort Auscultation: clear to auscultation bilaterally Cardio Rate: regular rate Rhythm: regular rhythm GI Auscultation: normal bowel sounds Extrem General: Yes normal to inspection Assessment & Plan Assessment & Plan (1) S/P laparoscopic sleeve gastrectomy: Code(s): Z98.84 - Bariatric surgery status Category: Surgical Plan: Patient lost her insurance for a period of time and was unable to follow-up in the office. She has now regained her insurance and would like to resume a scheduled meal plan. We will use: Orgain protein powder 8-10 am 2 scoops 11-1 pm 1 scoop 3-5 pm 1 scoop 7 pm meal with 7 forks protein and 7 forks vegetables She has been encouraged to return to the gym, focusing on cardiovascular activit y, burning 400 calories per day, 6-7 days per week. She has been encouraged to send me her weight measurements weekly and text with any questions or concerns. Return to the office in 1 month Check 3 year postop follow-up labs Orders: Orders Lipid Panel Today E50.9 - Vitamin A deficiency, unspecified, E51.9 - Thiamine deficiency, unspecified, E55.9 - Vitamin D deficiency, unspecified, K74.00 - Hepatic fibrosis, unspecified, Z98.84 - Bariatric surgery status Comprehensive Met. Panel Today E50.9 - Vitamin A deficiency, unspecified, E51.9 - Thiamine deficiency, unspecified, E55.9 - Vitamin D deficiency, unspecified, K74.00 - Hepatic fibrosis, unspecified, Z98.84 - Bariatric surgery status Vitamin B12 and Folate Today E50.9 - Vitamin A deficiency, unspecified, E51.9 - Thiamine deficiency, unspecified, E55.9 - Vitamin D deficiency, unspecified, K74.00 - Hepatic fibrosis, unspecified, Z98.84 - Bariatric surgery status C Reactive Protein Today E50.9 - Vitamin A deficiency, unspecified, E51.9 - Thiamine deficiency, unspecified, E55.9 - Vitamin D deficiency, unspecified, K74.00 - Hepatic fibrosis, unspecified, Z98.84 - Bariatric surgery status TSH reflex Free T4 Today E50.9 - Vitamin A deficiency, unspecified, E51.9 - Thiamine deficiency, unspecified, E55.9 - Vitamin D deficiency, unspecified, K74.00 - Hepatic fibrosis, unspecified, Z98.84 - Bariatric surgery status Insulin Today E50.9 - Vitamin A deficiency, unspecified, E51.9 - Thiamine deficiency, unspecified, E55.9 - Vitamin D deficiency, unspecified, K74.00 - Hepatic fibrosis, unspecified, Z98.84 - Bariatric surgery status Hemoglobin A1c Today E50.9 - Vitamin A deficiency, unspecified, E51.9 - Thiamine deficiency, unspecified, E55.9 - Vitamin D deficiency, unspecified, K74.00 - Hepatic fibrosis, unspecified, Z98.84 - Bariatric surgery status Complete Blood Count Auto Diff Today E50.9 - Vitamin A deficiency, unspecified, E51.9 - Thiamine deficiency, unspecified, E55.9 - Vitamin D deficiency, unspecified, K74.00 - Hepatic fibrosis, unspecified, Z98.84 - Bariatric surgery status IRON PROFILE Today E50.9 - Vitamin A deficiency, unspecified, E51.9 - Thiamine deficiency, unspecified, E55.9 - Vitamin D deficiency, unspecified, K74.00 - Hepatic fibrosis, unspecified, Z98.84 - Bariatric surgery status Zinc Today E50.9 - Vitamin A deficiency, unspecified, E51.9 - Thiamine deficiency, unspecified, E55.9 - Vitamin D deficiency, unspecified, K74.00 - Hepatic fibrosis, unspecified, Z98.84 - Bariatric surgery status Vitamin B1 Today E50.9 - Vitamin A deficiency, unspecified, E51.9 - Thiamine deficiency, unspecified, E55.9 - Vitamin D deficiency, unspecified, K74.00 - Hepatic fibrosis, unspecified, Z98.84 - Bariatric surgery status Vitamin A Today E50.9 - Vitamin A deficiency, unspecified, E51.9 - Thiamine deficiency, unspecified, E55.9 - Vitamin D deficiency, unspecified, K74.00 - Hepatic fibrosis, unspecified, Z98.84 - Bariatric surgery status Ferritin Today E50.9 - Vitamin A deficiency, unspecified, E51.9 - Thiamine deficiency, unspecified, E55.9 - Vitamin D deficiency, unspecified, K74.00 - Hepatic fibrosis, unspecified, Z98.84 - Bariatric surgery status Vitamin D 25-OH Total Today E50.9 - Vitamin A deficiency, unspecified, E51.9 - Thiamine deficiency, unspecified, E55.9 - Vitamin D deficiency, unspecified, K74.00 - Hepatic fibrosis, unspecified, Z98.84 - Bariatric surgery status Medications: New sennosides (senna) 17.2 mg (2 x 8.6 mg) PO BEDTIME PRN 90 tabs 3RF constipation Coding Level of Care Code Est Pt Level 4 (18229) Complex EM visit Add On G2211 Diagnoses S/P laparoscopic sleeve gastrectomy Z98.84 Time Spent (min) 40
--- OUTSIDE RECORDS SUMMARY | 2024-06-09 11:42 | XMS_ITS | Clinical Summary ---
Author Organization [facility] Address [address] [place] [address] Phone Care Team Providers Care Purchase Request Editor Name Role Phone Unavailable Primary Care Provider Unavailabl e Allergies Active Allergy Reactions Criticality Noted Date Comments Penicillins Hives 12/03/2023 Social History Tobacco Use Types Packs/Day Years Used Date Smoking Tobacco: Never Smokeless Tobacco: Never Alcohol Use Standard Drinks/Week Comments Not Currently 0 (1 standard drink = 0.6 oz pur e alcohol) Comments Unknown Sex and Gender Information Value Date Recorded Sex Assigned at Female 04/21/2024 12:15 PM EST Legal Sex Female 8:56 PM EST Gender Identity Female 04/21/2024 12:15 PM EST Sexual Orientation Not on file Obstetrics History Last Filed Vital Signs Vital Sign Reading Time Taken Comments Blood Pressure 110/72 01/22/2024 10:06 AM EDT Pulse 76 01/22/2024 10:06 AM EDT Temperature - - Respiratory Rate - - Oxygen Saturation - - Inhaled Oxygen Concentration - - Weight 82.7 kg (182 lb 6.4 oz) 01/22/2024 10:06 AM EDT Height 152.4 cm (5') 01/22/2024 10:06 AM EDT Body Mass Index 35.62 01/22/2024 10:06 AM EDT Plan of Treatment Health Maintenance Due Date Last Done Comments DTaP,Tdap,and Td Vaccines (1 - Tdap) 2016 Hepatitis B Vaccines (1 of 3 - 19+ 3-dose series) 2016 Cervical Cancer Screening: P ap Smear 2018 Depression Screening 05/09/2023 HIV Screening 05/09/2023 Hepatitis C Screening 05/09/2023 Social Influencers of Health Screening 05/09/2023 COVID-19 Vaccine (1 - 2023-2 5 season) 2023 Influenza Vaccine (#1) 2023 HIB Vaccines Aged Out No longer eligi ble based on patient's age to complete this topic HPV Vaccines Aged Out No longer eligi ble based on patient's age to complete this topic Hepatitis A Vaccines Aged Out No long er eligible based on patient's age to complete this topic IPV Vaccines Aged Out No longer eligi ble based on patient's age to complete this topic MMR Vaccines Aged Out No longer eligi ble based on patient's age to complete this topic Meningococcal ACWY Vaccine Aged Out N o longer eligible based on patient's age to complete this topic Meningococcal B Vacine Aged Out No lo nger eligible based on patient's age to complete this topic Pneumococcal Vaccine: Pediat rics (0 to 5 Years) and At-Risk Patients (6 to 64 Years) Aged Out No longer eligible b ased on patient's age to complete this topic RSV Immunization Patients Un elizabeth 20 months Aged Out No longer eligible b ased on patient's age to complete this topic Varicella Vaccines Aged Out No longer eligible based on patient's age to complete this topic Insurance [facility]
== END 2024-06-09 10:29 | disposition home or self-care (01) ==
PROVIDERS: PCP Student in an Organized Health Care Education/Training Program; Visit Provider Physician Assistant Surgical
DX: E66.812 Obesity, class 2 (principal); Z68.37 Body mass index [BMI] 37.0-37.9, adult; Z90.3 Acquired absence of stomach [part of]; Z98.84 Bariatric surgery status
CPT/HCPCS: 99214

== ENCOUNTER 2024-07-12 10:49 | Outpatient (AMB) | payer OTHER, MEDICAID, SELFPAY ==
--- NOTE | 2024-07-12 09:28 | MHC.OFFVISWM ---
VS Expanded 07/12/24 09:29 Height 5 ft Weight 192 lb BMI 37.5 Body Fat % 48.1 Fat Free Mass 99.6 Visceral Fat Rating 11.6 Body Water % 39 Muscle Mass/Score 93.5 Basal Metabolic Rate/Score 1,496 Intake Visit Reasons: (TV) PO LSG 06/04/22 [employer] Required: No Allergies Penicillins Allergy (Severe, Verified 07/31/22 11:40) HIVES Medication List - Last Reconciled 07/12/24 by LISA Silva sennosides (senna) 17.2 mg (2 x 8.6 mg) PO BEDTIME PRN HPI Comments Details: This?a?29?yo female who is s/p LSG without hiatal hernia repair on?06/04/[address] Guadarrama. Presents for 2 year 1 month post op visit. Weight today is 192 pounds, with a BMI of 37.5.? There has been a 49 pound weight loss,(initial weight 241 pounds) since starting the program on 02/11/22 reflecting a 20.3% total body weight loss and a weight loss of 22.5 pounds since surgery (operative weight 214.5 pounds) reflecting a 10.4% TBWL since surgery.? No complaints of nausea, emesis, abdominal pain or reflux. Reports infrequent but normal bowel movements every 2-3 days and uses stool softeners regularly.? She states that she had not been seen in the office because she had lost insurance. She has been under significant stress due to resuming her work and school schedule. She has not been following a specific meal plan or exercise plan. She has additionally been having difficulty with constipation and reflux. She states she started the meal plan but then stopped it after 2 week but didn't communicate to change meal plans. States she is about to have right breast surgery. previous meal plan includes: Orgain protein powder 8-10 am 2 scoops 11-1 pm 1 scoop 3-5 pm 1 scoop 7 pm meal with 7 forks protein and 7 forks vegetables ? Exercise routine includes: treadmill at home. last 3 days, 30 min, 1 mi. [facility] Medical History Axillary hidradenitis suppurativa GERD (gastroesophageal reflux disease) Morbid obesity Surgical History Hx of breast reduction, elective Family History Mother No problems noted. Father Diabetes Hypertension Sister No problems noted. Sister No problems noted. Sister No problems noted. Brother No problems noted. Brother No problems noted. Brother No problems noted. Son No problems noted. Social History Household Members: Family Housing: House Are you a primary career specialist to a significant other at home: Yes (5 year old son) Do you presently have visiting nurse or other home services: No Alcohol intake: current Alcohol intake frequency: does not drink Patient Tobacco Use Status: Never used Tobacco service: No Current occupational status: employed Telehealth Telehealth Telehealth Platform: Telephone Location of provider rendering services: practice address Location of patient: other Patient Identification confirmed using: Name, : Yes Telehealth method: voice only Patient verbally consented to treatment: Yes Patient verbally consented to billing insurance company: Yes Patient informed of any privacy concerns related to visit: Yes Minutes spent on Phone/Video with Pt.: 15 Assessment & Plan Assessment & Plan (1) S/P laparoscopic sleeve gastrectomy: Code(s): Z98.84 - Bariatric surgery status Category: Surgical Plan: patient has been working a lot and going to school. She just started using her treadmill. She stopped doing the orgain shakes 2 weeks ago. She has increased anxiety and has been snacking and not eating regularly. She is willing to use orgain but only once per day. New meal plan: Or gain protein shake, 2 scoops in 8 oz of unsweetened almond milk Fair life ready to drink shake, 26 g Meal 7 forks of protein and 7 forks of vegetables Discussed the critical importance of exercising regularly. Encouraged her to use her treadmill everyday with a goal of burning 300 calories per day. We will have her return to the office in approximately 1 month. Additionally, encouraged to send weight is weekly and text with any questions or concerns.
[2024-07-12 09:29] VITALS: BMI 37.5
--- OUTSIDE RECORDS SUMMARY | 2024-07-12 12:16 | XMS_ITS | Clinical Summary ---
Author Organization [facility] Address [address] [place] [address] Phone Care Team Providers Care Tool And Die Manager Name Role Phone Hilario Farmer MD Primary Care Provider [phone] Allergies Active Allergy Reactions Criticality Noted Date Comments Penicillins Hives 12/03/2023 Medications acetaminophen-c odeine (TYLENOL #3) 300-30 mg per tablet Take 1 tablet by mouth. 3 Active doxycycline (VIBRAMYCIN) 100 mg capsule Take 1 capsule (100 mg total) by mouth. 3 Active senna 8.6 mg tablet TAKE 2 TABLETS BY MOUTH BEDTIME NEEDED FOR CONSTIPATION 5 Active Active Problems Problem Noted Date Diagnosed Date Breast wound 07/09/2024 History of bilateral breast reduction surgery Encounters Date Type Department Care Team Description 07/09/2024 9:30 AM EDT Consult Plastic & Reconstructive Surgery - [place] [address] [facility] [address] [place] [phone] Amanuel Braxton PA History of bilateral breast reduction surgery (Primary Dx); Breast wound from Last 3 Months Social History Tobacco Use Types Packs/Day Years [...] Sign Reading Time Taken Comments Blood Pressure 127/79 07/09/2024 9:11 AM EDT Pulse 71 07/09/2024 9:11 AM EDT Temperature - - Respiratory Rate - - Oxygen Saturation - - Inhaled Oxygen Concentration - - Weight 87.8 kg (193 lb 9.6 oz) 07/09/2024 9:11 A M EDT Height 153.7 cm (5' 0.5 ) 07/09/2024 9:11 AM EDT Body Mass Index 37.19 07/09/2024 9:11 AM EDT Plan of Treatment Scheduled Procedures Name Priority Associated Diagnoses Date/Ti me EXCISION LESION ARM Breast wound REPAIR LACERATION Breast wound Health Maintenance Due Date Last Done Comments Hepatitis B Vaccines (1 of 3 - 19+ 3-dose series) 2016 Cervical Cancer Screening: P ap Smear 2018 HPV Vaccines (3 - 3-dose series) 05/18/2020 02/24/2020, 07/09/2017 Cholesterol Screening (Lipid Panel) 05/09/2023 Depression Screening 05/09/2023 HIV Screening 05/09/2023 Hepatitis C Screening 05/09/2023 Social Influencers of Health Screening 05/09/2023 COVID-19 Vaccine (1 - 2023-2 5 season) 2023 Influenza Vaccine (#1) 2023 02/24/2020 DTaP,Tdap,and Td Vaccines (2 - Td or Tdap) 11/06/2026 11/06/2016 HIB Vaccines Aged Out No longer eligi [...] age to complete this topic Pneumococcal Vaccine: Pediatrics (0 to 5 Years) and At-Risk Patients (6 to 64 Years) Aged Out No longer eligible b ased on patient's age to complete this topic RSV Immunization Patients Under 20 months Aged Out No longer eligible b ased on patient's age to complete this topic Varicella Vaccines Aged Out No longer eligible based on patient's age to complete this topic Insurance [employer] MEDICA[place] - [place] Care Teams Tool And Die Manager Relationship Specialty Start Date End Date Hilario Farmer MD [address] [address] PCP - General Internal Medicine 07/09/24
--- OUTSIDE RECORDS SUMMARY | 2024-07-12 12:16 | XMS_ITS | Encounter Summary ---
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 * Consultation (Routine) - Authorized Specialty Diagnoses / Procedures Referred By Aftab dexter Referred To Contact Plastic Surgery Diagnoses Breast wound Giovanni Landaverde MD [address] [facility] [address] [place] [address] Phone: tel: fax: Sundar Ballesteros, 300 [facility] [address] [place] [address] Phone: tel: fax: Referral ID Status Reason Start Date Expiration Date Visits Requested Visits Authorized [id number] Authorized Specialty Services Required 02/20/2024 02/19/2025 1 1 Encounter Details Date Type Department Care Team (Late st Contact Info) Description 07/09/2024 9:30 AM EDT Consult Plastic & Reconstructive Surgery - [place] 300 [facility] [address] [place] [address] [place], [place] 300 [facility] [address] [place] [address] History of bilateral breast reduction surgery (Primary Dx); Breast wound Social History Tobacco Use Types Packs/Day Years [...] PM EST Sexual Orientation Not on file documented as of this encounter Last Filed Vital Signs Vital Sign Reading Time Taken Comments Blood Pressure 127/79 07/09/2024 9:11 AM EDT Pulse 71 07/09/2024 9:11 AM EDT Temperature - - Respiratory Rate - - Oxygen Saturation - - Inhaled Oxygen Concentration - - Weight 87.8 kg (193 lb 9.6 oz) 07/09/2024 9:11 A M EDT Height 153.7 cm (5' 0.5 ) 07/09/2024 9:11 AM ED T Body Mass Index 37.19 07/09/2024 9:11 AM EDT documented in this encounter Progress Notes * LISA Hogan - 07/09/2024 9:30 AM EDTAddended by: STACEY VALDES on: 07/09/2024 01:01 PM Modules accepted: Orders * LISA Hogan - 07/09/2024 9:30 AM EDT Images from the original note were not included. PATIENT: Kaykay Sharif ENCOUNTER: 07/09/2024 EMRN: [id number] : 1995 CHIEF COMPLAINT: Consult (LINOTYPE WORKER- breast wound) The patient was given the opportunity to have a candle extrusion machine operator present during a sensitive examination attoday's visit. She declined this offer of a candle extrusion machine operator. HPI: Kaykay Sharif is a 29 y.o. female presenting for evaluation of right breast nonhealing wound. Patient referred by Dr. Landaverde for evaluation of nonhealing right breast wound. Per patient's report andprevious notes from Dr. Landaverde- pertinent history is as follows: In 2019 patient underwent a bilateral breast reduction with Yanique Rodriguez at [facility]. Approximately 1 to 2 years after her surgery she was found to have a small infection in the right inferior periareolar region whichshe underwent an operative intervention (either incision and drainage or debridement). Ultimately, this was not successful and she was followed by wound care, intending to have the wound heal by secondary intention. Patient states that since that time the wound has not improved. There are times when it has purulent discharge and becomes painful and swollen and other times when it heals over but ultimately has not completely healed. She underwent an ultrasound which shows a simple cyst, but still the wound persists. Patient states that she tried to contact Yanique Rodirguez's office but because of frequent moving the patient was unable to be seen. Ultimately she was followed by general surgery at [facility] for the lesion. She reports continuous spontaneous drainage of the cystic lesion, and was most recently seen inOcto2023, and was trialed on antibiotics. Patient states that is the last time that she is on antibiotics for her breast wound and she is ultimately referred to our office for possible surgical intervention. Patient states that the lesion persists, it heals over at times but continuously drains in a cyclical fashion. Today she has no significant pain and no drainage and no fevers. Patient is a non-smoker. She underwent a gastric sleeve surgery at [facility] in May 2021 and has lost approximately 50 pounds since then. ROS: CONSTITUTIONAL: no malaise, no significant weight changes, no excessive fatigue, no fevers or chills EYES: no visual complaints ENT: no changes in hearing vision nasal problems or hoarseness CARDIOVASCULAR:no chest pain and leg swelling or palpitations RESPIRATORY: no chronic cough wheezing or shortness of breath GI: no abdominal pain nausea vomiting or diarrhea : no dysuria frequency or incontinence NEUROLOGICAL: no stated paresthesias PSYCHIATRIC: no change from baseline ENDOCRINE: no heat or cold intolerance HEMATOLOGIC: no excessive bleeding INTEGUMENTARY: As stated in HPI PAST MEDICAL HISTORY: Patient Active Problem List Diagnosis Breast wound History of bilateral breast reduction surgery PAST SURGICAL HISTORY: No past surgical history on file. SOCIAL HISTORY: Social History Tobacco Use Smoking status: Never Smokeless tobacco: Never Substance Use Topics Alcohol use: Not Currently Drug use: Not Currently FAMILY HISTORY: No family history on file. I have reviewed the following sections of the chart: Family History. MEDICATIONS: Outpatient Medications Marked as Taking for the 07/09/24 encounter (Consult) with LISA Hogan Medication Sig Dispense Refill acetaminophen-codeine (TYLENOL #3) 300-30 mg per tablet Take 1 tablet by mouth. senna 8.6 mg tablet TAKE 2 TABLETS BY MOUTH BEDTIME NEEDED FOR CONSTIPATION PHYSICAL EXAM: Visit Vitals BP 127/79 Pulse 71 Ht 1.537 m (60.5 ) Wt 87.8 kg (193 lb 9.6 oz) BMI 37.19 kg/m?? Smoking Status Never BSA 1.85 m?? Head atraumatic Bilateral breast with healed scars Right breast with what appears to be a healed wound in the right periareolar region without any erythema edema or induration or discharge noted No other similar skin lesions noted. APPEARANCE: Normal EYES: Pupils, conjunctiva and sclera normal. EARS: normal MOUTH/THROAT: normal without lesions NECK: Neck supple LUNG: NO labored breathing NEURO: Awake, alert and oriented x 3 PSYCHIATRIC: Mood and affect are normal SKIN: as noted above LABS / PATHOLOGY: Marketing Research Coordinator note and pathology report from biopsy reviewed. IMAGING: IMPRESSION: 1. History of bilateral breast reduction surgery 2. Breast wound PLAN: 1. Kaykay Sharif is a 29 y.o. female presenting for evaluation of right breast wound, chronic following breast reduction surgery with Yanique Rodriguez in [address] Ballesteros he is willing to remove the chronic wound Discussed risks / benefits of surgical excision No evidence of active cellulitis or infection, no indication for antibiotics at this time Will book for excision documented in this encounter Plan of Treatment Scheduled Procedures Name Priority Associated Diagnoses Date/Ti me EXCISION LESION ARM Breast wound REPAIR LACERATION Breast wound documented as of this encounter Visit Diagnoses Diagnosis History of bilateral breast reduction surgery- Primary Other postprocedural status Breast wound Open wound of breast, without mention of complication documented in this encounter Historical Medications * This list may reflect changes made after this encounter. senna 8.6 mg tablet TAKE 2 TABLETS BY MOUTH BEDTIME NEEDED FOR CONSTIPATION 06/09/2024 doxycycline (VIBRAMYCIN) 100 mg capsule Take 1 capsule (100 mg total) by mouth. 05/23/2022 acetaminophen-co deine (TYLENOL #3) 300-30 mg per tablet Take 1 tablet by mouth. 05/23/2022 added in this encounter Orders Outpatient Referral Count Last Ordered Date Fir st Ordered Date AMB REFERRAL TO PLASTIC SURGERY 1 03/28/202 5 Case Request Count Last Ordered Date First Orde red Date CASE REQUEST OPERATING ROOM 1 07/09/2024 documented in this encounter Care Teams Dental Surgeon Relationship Specialty Start Date [place] [address] PCP - General Internal Medicine 07/09/24 documented as of this encounter
== END 2024-07-12 10:50 | disposition home or self-care (01) ==
LOC: HO.HBS 10:49
PROVIDERS: PCP Student in an Organized Health Care Education/Training Program; Visit Provider Physician Assistant Surgical
DX: E66.812 Obesity, class 2 (principal); Z68.37 Body mass index [BMI] 37.0-37.9, adult; Z90.3 Acquired absence of stomach [part of]; Z98.84 Bariatric surgery status
CPT/HCPCS: 98012

== ENCOUNTER → 2024-07-12 10:49 | Outpatient (BNVA) | payer OTHER, MEDICAID, SELFPAY | PROVIDERS: PCP Student in an Organized Health Care Education/Training Program; Visit Provider Physician Assistant Surgical | DX: Z98.84 Bariatric surgery status (principal); K74.00 Hepatic fibrosis, unspecified; E55.9 Vitamin D deficiency, unspecified; E51.9 Thiamine deficiency, unspecified; E50.9 Vitamin A deficiency, unspecified ==